=== PATIENT | female | born 1945 | race Caucasian/White ===

== ENCOUNTER 2017-08-06 16:05 | Inpatient (IN) | payer MEDICARE, OTHER, SELFPAY ==
[2017-08-06 16:13] VITALS: BP 156/88; PULSE 103; RESP 16; TEMP 37.6; O2SAT 99; BMI 39.6
--- NOTE | 2017-08-06 16:50 | DI.CT.S_ITS ---
PROCEDURE: CT SOFT TISSUE NECK W CON INDICATIONS: anterior neck swelling TECHNIQUE: After the administration of intravenous contrast, 3.0 mm axial sections acquired from the sella to the aortic arch. Additional oblique axial 3.0 mm sections acquired through the pharynx. 3 mm thick coronal and sagittal reformats were generated. For radiation dose reduction, the following was used: automated exposure control. COMPARISON: None. FINDINGS: Image quality: Excellent. Lymph nodes: No enlarged lymph nodes seen throughout the neck. Vessels: Visualized vasculature appears patent. Neck spaces: 1.6 x 1.4 x 1.0 cm fluid collection with enhancing periphery is noted in the musculature of the floor of the mouth which could represent abscess or necrotic neoplasm. The nasopharynx, and pharynx demonstrate no mucosal lesions. The vocal cords, false vocal cords, pyriform sinuses, epiglottis, vallecula, and tongue base all appear normal. Mild inflammatory changes noted in the anterior midline soft tissues of the neck. Glands: The parotid and submandibular glands appear normal. Thyroid gland is normal. Miscellaneous: Visualized brain and orbits appear normal. Lung apices appear clear. Superficial soft tissues appear normal. Bones: No suspicious bony lesions. Spine degenerative disease and facet arthropathy noted. Visualized sinuses and mastoids appear unremarkable. IMPRESSION: 1. 1.6 x 1.4 x 1.0 cm fluid collection with enhancing periphery in the genioglossus muscle of the floor of the mouth which could represent an abscess versus less likely necrotic malignancy. Please correlate with clinical data. 2. Mild inflammatory stranding noted in the anterior midline soft tissues of the neck concerning for cellulitis. Dictated by: Olga Strauss MD, PhD on 08/06/2017 at 18:57 Approved by: Olga Strauss MD, PhD on 08/06/2017 at 19:02
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
[2017-08-06 17:33] LABS: Add Manual Diff / Slide Review NO; Basophils Percent Auto 0.6 % (0-2); Eosinophils Percent Auto 0.5 % (2-4); Hemoglobin 13.9 g/dL (12.0-16.0); Lymphocytes Percent Auto 14.5 % (25-40); Mean Corpuscular Volume 88.3 fL (80-100); Monocytes Percent Auto 7.5 % (3-14); Neutrophils Absolute Auto 9300 /uL (3000-5900); Neutrophils Percent Auto 76.9 % (50-75); Platelet Count 361 X10^3/uL (150-400); Red Blood Cell Count 4.65 X10^6/uL (4.0-5.2); Red Cell Distribution Width 13.3 % (11.6-14.8); White Blood Cell Count 12.1 X10^3/uL (4.5-11.0)
[2017-08-06] MEDS: methylPREDNISolone 125 MG/2 ML VIAL IV (17:38)
[2017-08-06] MEDS: diphenhydrAMINE 50 MG/ML VIAL 25 MG IV ×2 (17:38→18:17)
[2017-08-06] MEDS: CLINDAMYCIN 600 MG/50 ML PIGGYBACK 50 MG IV (17:39)
[2017-08-06 17:46] LABS: Alanine Aminotransferase 45 IU/L (9-52); Albumin 4.5 g/dL (3.5-5.0); Albumin Globulin Ratio 1.5 (1.0-2.8); Alkaline Phosphatase 68 U/L (38-126); Aspartate Aminotransferase 28 IU/L (14-36); Bilirubin Total 0.8 mg/dL (0.2-1.3); Blood Urea Nitrogen 12 mg/dL (7-17); Calcium 9.7 mg/dL (8.4-10.2); Carbon Dioxide 24 mmol/L (22-32); Chloride 103 mmol/L (98-107); Estimated Glomerular Filt Rate > 60.0 mL/min (>60); Globulin 3.1 g/dL (1.7-4.1); Glucose 101 mg/dL (80-110); HEMOLYSIS < 15 (0-50); Potassium 3.8 mmol/L (3.4-5.1); Sodium 140 mmol/L (137-145); Total Protein 7.6 g/dL (6.3-8.2)
[2017-08-06 18:05] LABS: Procalcitonin < 0.05 ng/mL (<0.5)
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
[2017-08-06] MEDS: DEXAMETHASONE 20 MG in SODIUM CHLORIDE 0.9% 50 ML 208 ML IV (19:05)
[2017-08-06 19:45] VITALS: BP 123/79; PULSE 85; RESP 16; TEMP 36.1; O2SAT 98
[2017-08-06 20:01] VITALS: BMI 39.6
[2017-08-06] MEDS: SODIUM CHLORIDE 0.9% 1,000 ML 150 ML IV (20:18)
[2017-08-06] MEDS: ATORVASTATIN 20 MG TABLET 80 MG PO (21:23)
[2017-08-06] MEDS: SPIRONOLACTONE 25 MG TABLET PO (21:23)
[2017-08-06] MEDS: POTASSIUM CHLORIDE 20 MEQ TAB PO (21:23)
[2017-08-06] MEDS: GABAPENTIN 300 MG CAPSULE PO (21:23)
[2017-08-06] MEDS: ACETAMINOPHEN 325 MG TABLET 650 MG PO (21:25)
[2017-08-06 23:40] VITALS: BP 123/67; PULSE 81; RESP 17; TEMP 36.7; O2SAT 96
[2017-08-07] MEDS: CLINDAMYCIN 600 MG/50 ML PIGGYBACK 50 MG IV ×4 (00:01→18:08)
[2017-08-07] MEDS: SODIUM CHLORIDE 0.9% 1,000 ML 150 ML IV ×3 (03:43→21:13)
[2017-08-07 03:45] VITALS: BP 110/57; PULSE 70; RESP 16; TEMP 36.7; O2SAT 97
[2017-08-07] MEDS: LEVOTHYROXINE 50 MCG TABLET PO (05:21)
[2017-08-07] MEDS: DEXAMETHASONE 20 MG in SODIUM CHLORIDE 0.9% 50 ML 220 ML IV ×3 (06:43→21:14)
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
[2017-08-07] MEDS: POTASSIUM CHLORIDE 20 MEQ TAB PO ×2 (08:16→17:12)
[2017-08-07 08:34] VITALS: BP 115/75; PULSE 70; RESP 14; TEMP 36.4; O2SAT 96
[2017-08-07] MEDS: GABAPENTIN 300 MG CAPSULE PO ×3 (08:40→22:31)
[2017-08-07] MEDS: SPIRONOLACTONE 25 MG TABLET PO ×2 (08:42→17:11)
[2017-08-07] MEDS: CLOPIDOGREL 75 MG TABLET PO (11:44)
[2017-08-07] MEDS: ASPIRIN EC 81 MG TABLET PO (11:44)
[2017-08-07 14:30] VITALS: BP 129/66; PULSE 73; RESP 16; TEMP 36.5; O2SAT 98
--- NOTE | 2017-08-07 15:29 | CM.DANOTE ---
Patient is a 71 year old female admitted for swelling of throat and hard time swallowing. Patient has Submental abscess on imaging. Admit for ENT consultation, IV clindamycin and possible surgical drainage pending ENT evaluation. Met with patient at her bedside. She is alert and oriented. Role of certified financial planner explained. Patient lives on [facility] [address] during the desir and in [place] in the winter. She lives with her and is I. She does not identify any discharge needs or barriers. Plan: Continue to follow but likely d/c home with when medically stable.
[2017-08-07 15:50] VITALS: BP 125/65; PULSE 69; RESP 17; TEMP 36.2; O2SAT 98
[2017-08-07 19:55] VITALS: BP 116/67; PULSE 78; RESP 18; TEMP 36.2; O2SAT 96
[2017-08-07] MEDS: ATORVASTATIN 20 MG TABLET 80 MG PO (21:13)
--- NOTE | 2017-08-07 22:54 | PC.NURSE ---
SLOAN SHIFT NOTE: Patient doing well this shift. Denies pain, states that swelling and tightness in neck has gone down immensely. Patient very anxious and wanting to discharge as early as possible tomorrow am. Patient took off her wedding band and placed/pinned it inside her bra with safety pin as her fingers are swollen, this RN offered to put ring in safe per hospital policy and patient denied need. No other voiced complaints.
[2017-08-07 23:55] VITALS: BP 128/59; PULSE 73; RESP 17; TEMP 36.7; O2SAT 95
[2017-08-08 00:10] VITALS: O2SAT 95
[2017-08-08] MEDS: CLINDAMYCIN 600 MG/50 ML PIGGYBACK 50 MG IV ×2 (00:21→05:42)
[2017-08-08 04:01] VITALS: BP 127/70; PULSE 79; RESP 16; TEMP 36.7; O2SAT 94
[2017-08-08 04:20] VITALS: RESP 20
[2017-08-08] MEDS: SODIUM CHLORIDE 0.9% 1,000 ML 150 ML IV (05:11)
[2017-08-08] MEDS: LEVOTHYROXINE 50 MCG TABLET PO (05:43)
[2017-08-08] MEDS: ACETAMINOPHEN 325 MG TABLET 650 MG PO (05:45)
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
[2017-08-08] MEDS: SPIRONOLACTONE 25 MG TABLET PO (08:43)
[2017-08-08] MEDS: CLOPIDOGREL 75 MG TABLET PO (08:43)
[2017-08-08] MEDS: ASPIRIN EC 81 MG TABLET PO (08:43)
[2017-08-08] MEDS: MOXIFLOXACIN HCL 400 MG TABLET PO (08:43)
[2017-08-08] MEDS: GABAPENTIN 300 MG CAPSULE PO (08:43)
[2017-08-08] MEDS: POTASSIUM CHLORIDE 20 MEQ TAB PO (08:43)
[2017-08-08 08:44] VITALS: BP 115/67; PULSE 71; RESP 18; TEMP 36.6; O2SAT 98
--- NOTE | 2017-08-08 11:16 | PC.NURSE ---
Pt denies difficulty swallowing and reports improvement to anterior neck swelling; pt reports generalized weakness, gait steady, pt afebrile; instructions reviewed including RX medications, and f/u appointment; pt escorted via wheelchair with personal belongings in hand
== END 2017-08-08 10:45 | disposition home or self-care (01) | DRG 603 ==
LOC: ED 19:06 → AC 08-07 08:57
PROVIDERS: Emergency Medicine; Admitting Provider Internal Medicine; Emergency Provider Emergency Medicine; Visit Provider Internal Medicine
DX: L02.01 Cutaneous abscess of face (principal); E66.9 Obesity, unspecified; Z68.39 Body mass index [BMI] 39.0-39.9, adult; J45.909 Unspecified asthma, uncomplicated; E78.5 Hyperlipidemia, unspecified; I10 Essential (primary) hypertension; I25.10 Atherosclerotic heart disease of native coronary artery without angina pectoris; E03.9 Hypothyroidism, unspecified
CPT/HCPCS: 36415; 36591; 70491; 80053; 83605; 84145; 85025; 87040; 93005; 96365; 96375; 96376; 99283; 99285; J1100; J1200; J2930; Q9967

== ENCOUNTER 2017-08-18 17:29 | Observation (INO) | payer MEDICARE, OTHER, SELFPAY ==
[2017-08-18 17:30] VITALS: BP 144/76; PULSE 80; RESP 14; TEMP 37.2; O2SAT 100
--- NOTE | 2017-08-18 17:55 | PC.NURSE ---
Airway intact. Voice improved from previous visit per Dr. Zendejas.
[2017-08-18 18:04] LABS: Add Manual Diff / Slide Review NO; Basophils Percent Auto 0.1 % (0-2); Eosinophils Percent Auto 1.2 % (2-4); Hematocrit 42.1 % (36-46); Hemoglobin 14.1 g/dL (12.0-16.0); Lymphocytes Percent Auto 13.5 % (25-40); Mean Corpuscular HGB Conc 33.6 % (30-36); Mean Corpuscular Hemoglobin 29.7 PG (26-34); Mean Corpuscular Volume 88.5 fL (80-100); Monocytes Percent Auto 5.8 % (3-14); Neutrophils Absolute Auto 17400 /uL (3000-5900); Neutrophils Percent Auto 79.4 % (50-75); Platelet Count 396 X10^3/uL (150-400); Red Blood Cell Count 4.76 X10^6/uL (4.0-5.2); Red Cell Distribution Width 13.6 % (11.6-14.8); White Blood Cell Count 21.9 X10^3/uL (4.5-11.0)
[2017-08-18 18:28] LABS: Lactate (Lactic Acid) 1.2 mmol/L (0.7-2.1)
--- NOTE | 2017-08-18 18:39 | ED.NECK ---
HPI - Neck Pain/Injury General Chief Complaint: Neck Pain/Injury Stated Complaint: NEED IV POST PRECEDURE Time Seen by Provider: 08/18/17 17:50 Source: patient and family Mode of arrival: ambulatory Limitations: no limitations History of Present Illness HPI Narrative: 71-year-old female with history of anterior neck abscess presents to the emergency department at the request ear nose and throat for further evaluation. She had initially been seen here about 2 weeks ago for swelling in her throat, CT confirmed a small abscess and she was admitted for IV antibiotics. She was discharged on oral antibiotics which she stopped about a week ago. Over the past few days her symptoms have worsened and she followed up as an outpatient with Dr. Bonner whom did an incision and drainage in placed a [place] drain but sent her here due to increased swelling and some persistent bleeding, presumably due to her Plavix and aspirin. She denies any difficulty swallowing or breathing. She has had no fever or shaking chills. MD complaint: neck pain Onset (ago): week(s) Place: home Severity: moderate Quality: dull Duration: constant Relieving factors: none Exacerbating factors: none Associated symptoms: none Treatments prior to arrival: other (See HPI) Related Data Home Medications Medication Instructions Recorded Confirmed albuterol sulfate 1 puff INHALATION PRN PRN 08/06/17 08/06/17 aspirin 1 tab PO DAILY 08/06/17 08/06/17 atorvastatin 1 tab PO DAILY 08/06/17 08/06/17 bacitracin 1 applic TOPICAL DIRECTED 08/06/17 08/06/17 cetirizine 1 tab PO DAILY 08/06/17 08/06/17 clopidogrel 75 mg PO DAILY 08/06/17 08/06/17 diclofenac sodium 1 applic TOPICAL DIRECTED 08/06/17 08/06/17 dicyclomine 20 mg PO TID 08/06/17 08/06/17 epinephrine 1 ea IM PRN PRN 08/06/17 08/06/17 fluticasone 1 spray INTRANASAL DIRECTED 08/06/17 08/06/17 furosemide 20 mg PO DAILY PRN 08/06/17 08/06/17 gabapentin 1 cap PO TID 08/06/17 08/06/17 levothyroxine 1 tab PO DAILY 08/06/17 08/06/17 montelukast 1 tab PO DAILY 08/06/17 08/06/17 olopatadine 1 drp OPHTHALMIC (EYE) DIRECTED 08/06/17 08/06/17 potassium chloride 1 tab PO BID 08/06/17 08/06/17 spironolactone 25 mg PO BID 08/06/17 08/06/17 Previous Rx's Medication Instructions Recorded dexamethasone 4 mg PO Q12H #9 tab 08/08/17 moxifloxacin 400 mg PO DAILY #6 tab 08/08/17 Allergies Allergy/AdvReac Type Severity Reaction Status Date / Time Iodinated Contrast- Oral and Allergy Severe Anaphylaxis Verified 08/06/17 20:17 IV Dye strawberry Allergy Severe Hives Verified 08/07/17 17:19 Beta-Adrenergic Agents Allergy Verified 08/06/17 20:17 Penicillins Allergy Verified 08/06/17 20:17 Review of Systems Review of Systems All systems reviewed & are unremarkable except as noted in HPI and below Constitutional Denies chills, Denies fever(s), Denies lethargy and Denies weakness Eyes Denies change in vision, Denies eye discharge, Denies irritation and Denies loss of vision ENT Ears, Nose, Mouth, and Throat: Denies change in voice, Reports neck pain and Denies sore throat Cardiovascular Denies chest pain, Denies irregular heart rhythm, Denies lightheadedness, Denies palpitations, Denies dyspnea, Denies dyspnea on exertion and Denies orthopnea Respiratory Denies cough, Denies dyspnea, Denies dyspnea on exertion and Denies wheezing Gastrointestinal Gastrointestinal: Denies abdominal pain, Denies change in bowel habits, Denies diarrhea, Denies nausea and Denies vomiting Genitourinary Denies hematuria, Denies flank pain, Denies urinary incontinence and Denies urinary urgency Musculoskeletal Reports neck pain Integumentary/Breasts Denies pruritus, Denies erythema, Denies rash and Denies wounds Neurologic Denies confusion, Denies loss of vision and Denies weakness Psychiatric Denies anxiety, Denies confusion, Denies depression, Denies homicidal ideation and Denies suicidal ideation Endocrine Denies palpitations Hematologic/Lymphatic Denies easy bruising Allergic/Immunologic Denies wheezing [facility] Medical History Asthma (Acute) Cervical vertebral fusion (Acute) Coronary artery disease (Acute) Hyperlipidemia (Acute) Hypertension (Acute) Osteoarthritis (Acute) Surgical History History of shoulder surgery (Acute) Family History: Reviewed 08/18/17 by Quyen Ruiz MD Social History household members: spouse Smoking Status: Never smoker alcohol intake: current Exam Narrative Exam Narrative: 71-year-old female resting comfortably with dressing in place, saturated with sanguinous drainage Initial Vital Signs Initial Vital Signs: Vital Signs Temperature 98.9 F 08/18/17 17:30 Pulse Rate 80 08/18/17 17:30 Respiratory Rate 14 08/18/17 17:30 Blood Pressure 144/76 H 08/18/17 17:30 Pulse Oximetry 100 08/18/17 17:30 Const General: cooperative, well developed and in distress Nutritional Appearance: well nourished Orientation: alert, awake, oriented x3 and not confused HENMT Head: normocephalic and atraumatic Ears: external ears normal and TM's normal bilaterally Nose: external nose normal and No nasal discharge Face and sinus: sinuses nontender, face symmetric, no sinus tenderness and No dry mucous membranes Mouth: oral mucosae normal and moist mucous membranes Teeth and gingiva: dentition normal Throat: tonsils normal and uvula midline Eyes General: appearance normal, both eyes and all related structures Eyelids: eyelids normal Conjunctivae: conjunctivae normal Sclera: sclerae normal Pupils: PERRL EOM: EOM intact bilaterally Neck Neck: trachea midline, No lymphadenopathy, No midline deformity and No JVD Lymphatic: No lymphedema Other: Anterior dressing in place. [place] drain in place. There is induration but no remaining fluctuance Chest Chest: normal inspection of the chest Resp Effort & Inspection: normal respiratory effort, able to speak in complete sentences, no respiratory distress and no use of accessory muscles Auscultation: clear to auscultation bilaterally, no rales, no rhonchi and no wheezes Cardio Rate: regular rate Rhythm: regular rhythm Heart Sounds: no click, no gallops, no murmurs and no rubs Pulses: normal peripheral pulses GI Inspection: non-distended Palpation: soft, no hepatosplenomegaly, No guarding, No pulsatile mass and No tender Auscultation: normal bowel sounds Back/Spine/Pelvis Back: No CVA tenderness Cervical Spine: cervical ROM normal and No pain with cervical ROM Thoracic/Lumbar Spine: thoracic and lumbar spine normal to inspection Skin General: no rashes or lesions noted, No jaundice and No petechiae Neuro General: alert, oriented x3, gait normal and no focal motor deficits Speech: speech normal Extrem General: full ROM, no clubbing, cyanosis or edema, no pedal edema and no calf tenderness Psych Appearance: well kempt Mental Status: mental status grossly normal Attitude: cooperative Thought Content: normal and suicidality Judgment: judgment good Course Orders Ordered: ED Orders 08/18/17 17:45 Complete Blood Count AUTO DIFF Stat Lactate (Lactic Acid) Stat 08/18/17 17:51 Blood Culture Stat Albuterol (Ventolin Hfa) 1 puff INH PRN PRN PRN Reason: Shortness Of Breath Atorvastatin Calcium (Lipitor) 80 mg PO DAILY MARIA GUADALUPE Gabapentin (Neurontin) 300 mg PO TID MARIA GUADALUPE Levothyroxine Sodium (Synthroid) 50 mcg PO QACBREAK MARIA GUADALUPE Loratadine (Claritin) 10 mg PO DAILY MARIA GUADALUPE Ondansetron HCl (Zofran) 4 mg IV Q4HR PRN PRN Reason: Nausea And Vomiting Last Admin: 08/18/17 18:41 Dose: 4 mg Discontinued Medications Diphenhydramine HCl (Benadryl) 25 mg IV NOW ONE Stop: 08/18/17 18:27 Last Admin: 08/18/17 18:41 Dose: 25 mg Hydromorphone HCl (Dilaudid) 0.5 mg IV NOW ONE Stop: 08/18/17 18:27 Last Admin: 08/18/17 18:41 Dose: 0.5 mg Dexamethasone 20 mg/ Sodium (Chloride) 52 mls @ 208 mls/hr IV NOW ONE Stop: 08/18/17 18:27 Last Infusion: 08/18/17 19:50 Dose: 208 mls/hr Admin: 08/18/17 19:22 Dose: 208 mls/hr Sodium Chloride (Normal Saline 0.9%) 1,000 mls @ 1,000 mls/hr IV BOLUS ONE Stop: 08/18/17 19:25 Last Infusion: 08/18/17 19:31 Dose: 0 mls/hr Admin: 08/18/17 18:48 Dose: 1,000 mls/hr Clindamycin Phosphate (Cleocin) 900 mg in 50 mls @ 50 mls/hr IV NOW ONE Stop: 08/18/17 19:30 Last Infusion: 08/18/17 19:37 Dose: 0 mls/hr Admin: 08/18/17 18:43 Dose: 50 mls/hr Tranexamic Acid (Cyklokapron) 1,000 mg INJ INTRA-OP ONE Stop: 08/18/17 19:34 Last Admin: 08/18/17 19:34 Dose: 1,000 mg Reevaluation(s) Reevaluation #1: Dr. Bonner recommends IV antibiotics and admission to the hospitalist. He will follow up closely Consultations Consultation #1: Dr. Ruiz happy to accept on her service Vital Signs - 8 hr 08/18/17 18:52 08/18/17 20:55 08/18/17 22:37 Temperature 98.1 F Pulse Rate 83 72 Respiratory Rate 12 19 Blood Pressure 123/68 H Blood Pressure [Left Arm] 134/78 H Pulse Oximetry 96 99 96 08/19/17 00:00 08/19/17 00:40 08/19/17 01:25 Temperature 98.2 F Pulse Rate 72 Respiratory Rate 20 Blood Pressure 123/60 H Blood Pressure [Left Arm] Pulse Oximetry 96 95 93 MDM - Neck Pain/Injury Lab Data Result diagrams: 08/18/17 17:45 Lab Results 08/18/17 08/18/17 Range/Units 17:45 17:45 WBC 21.9 H (4.5-11.0) X10^3/uL RBC 4.76 (4.0-5.2) X10^6/uL Hgb 14.1 (12.0-16.0) g/dL Hct 42.1 (36-46) % MCV 88.5 (80-100) fL MCH 29.7 (26-34) PG MCHC 33.6 (30-36) % RDW 13.6 (11.6-14.8) % Plt Count 396 (150-400) X10^3/uL Neut % (Auto) 79.4 H (50-75) % Lymph % (Auto) 13.5 L (25-40) % [place] % (Auto) 5.8 (3-14) % Eos % (Auto) 1.2 L (2-4) % Baso % (Auto) 0.1 (0-2) % Neut # (Auto) 51367 H (3799-6457) /uL Lactate 1.2 (0.7-2.1) mmol/L Discharge Plan Departure Patient Disposition: Admitted As Inpatient Clinical Impression: Abscess of neck Discharge Date/Time: 08/18/17 19:51 Interventions: ED Discharge Assessment Last Done: 08/18/17 19:16 Admit Date/Time: 08/18/17 19:42 Admit Provider: Quyen Ruiz
[2017-08-18] MEDS: HYDROMORPHONE 1 MG INJ 0.5 MG IV (18:41)
[2017-08-18] MEDS: diphenhydrAMINE 50 MG/ML VIAL 25 MG IV (18:41)
[2017-08-18] MEDS: ONDANSETRON 4 MG/2 ML INJ IV (18:41)
[2017-08-18] MEDS: CLINDAMYCIN 900 MG/50 ML PIGGYBACK 50 MG IV (18:43)
[2017-08-18] MEDS: SODIUM CHLORIDE 0.9% 1,000 ML 1000 ML IV (18:48)
[2017-08-18 18:52] VITALS: BP 134/78; PULSE 83; RESP 12; O2SAT 96
[2017-08-18] MEDS: DEXAMETHASONE 20 MG in SODIUM CHLORIDE 0.9% 50 ML 208 ML IV (19:22)
[2017-08-18] MEDS: TRANEXAMIC ACID 1,000 MG VIAL 1000 MG INJ (19:34)
[2017-08-18 20:55] VITALS: BP 123/68; PULSE 72; RESP 19; TEMP 36.7; O2SAT 99
--- NOTE | 2017-08-18 21:13 | P.HP_ITS ---
History of Present Illness Date Patient Seen: 08/18/17 Time Patient Seen: 21:00 Chief complaint: NEED IV POST PRECEDURE Narrative: 71-year-old female who was recently admitted to [facility] on August 06, 2017 for submental abscess. She was treated with IV clindamycin and had improvement of the abscess. She was subsequently discharged home on oral avelox. She had improvement of her symptoms when she went for follow-up appointment with Dr. Bonner about a week ago. She has been off antibiotics for about 6 days. She started noticing worsening of swelling about 2 days ago. She also had some chills. When she returned today for follow-up visit, she was noted to have recurrent abscess in the same area. Surgical I&D was performed by Dr. Bonner at the ENT clinic. A drain was placed. [place] [id number]. She was admitted to the medicine floor for IV antibiotics and observation. After admission she was noted to have profuse bleeding from the drain placement site. Dr. Bonner is currently evaluating the patient for possible cauterization. Patient History Medical History Asthma (Acute) Cervical vertebral fusion (Acute) Coronary artery disease (Acute) Hyperlipidemia (Acute) Hypertension (Acute) Osteoarthritis (Acute) Surgical History History of shoulder surgery (Acute) Family & Social History Family History: Reviewed 08/18/17 by Quyen Ruiz MD Social History: household members spouse Safety & Behavioral: Feels Safe in Current Yes Environment Been Physically Hurt or No Threatened By a Person Tobacco & Substance use: Smoking Status Never smoker alcohol intake current alcohol intake frequency 0-2 drinks per day Substance Use Type does not use Meds Home Medications Medication Instructions Recorded Confirmed Type albuterol sulfate 1 puff INHALATION PRN PRN 08/06/17 08/06/17 History aspirin 1 tab PO DAILY 08/06/17 08/06/17 History atorvastatin 1 tab PO DAILY 08/06/17 08/06/17 History bacitracin 1 applic TOPICAL DIRECTED 08/06/17 08/06/17 History cetirizine 1 tab PO DAILY 08/06/17 08/06/17 History clopidogrel 75 mg PO DAILY 08/06/17 08/06/17 History diclofenac sodium 1 applic TOPICAL DIRECTED 08/06/17 08/06/17 History dicyclomine 20 mg PO TID 08/06/17 08/06/17 History epinephrine 1 ea IM PRN PRN 08/06/17 08/06/17 History fluticasone 1 spray INTRANASAL DIRECTED 08/06/17 08/06/17 History furosemide 20 mg PO DAILY PRN 08/06/17 08/06/17 History gabapentin 1 cap PO TID 08/06/17 08/06/17 History levothyroxine 1 tab PO DAILY 08/06/17 08/06/17 History montelukast 1 tab PO DAILY 08/06/17 08/06/17 History olopatadine 1 drp OPHTHALMIC (EYE) DIRECTED 08/06/17 08/06/17 History potassium chloride 1 tab PO BID 08/06/17 08/06/17 History spironolactone 25 mg PO BID 08/06/17 08/06/17 History dexamethasone 4 mg PO Q12H #9 tab 08/08/17 Rx moxifloxacin 400 mg PO DAILY #6 tab 08/08/17 Rx Allergies Allergy/AdvReac Type Severity Reaction Status Date / Time Iodinated Contrast- Oral and Allergy Severe Anaphylaxis Verified 08/06/17 20:17 IV Dye strawberry Allergy Severe Hives Verified 08/07/17 17:19 Beta-Adrenergic Agents Allergy Verified 08/06/17 20:17 Penicillins Allergy Verified 08/06/17 20:17 Review of Systems Constitutional Comments: Denies fever chills or sweats ENT Ears, Nose, Mouth, and Throat: Yes as per HPI Cardiovascular Comments: Denies chest pain or shortness of breath Respiratory Comments: No cough Gastrointestinal Comments: Denies abdominal pain Genitourinary Comments: No dysuria Exam Vital Signs (past 8 hours): - 08/18/17 17:30 08/18/17 18:52 08/18/17 20:55 Temperature 98.9 F 98.1 F Pulse Rate 80 83 72 Respiratory Rate 14 12 19 Blood Pressure 144/76 H 123/68 H Blood Pressure [Left Arm] 134/78 H Pulse Oximetry 100 96 99 Oxygen Delivery Method Room Air Narrative Exam Narrative: GENERAL: Well-appearing, well-nourished and in no acute distress. HEENT: Head normocephalic, atraumatic. Eyes pupils equal round; submental wound has drain in place, no current bleeding. There was mild soft tissue swelling around the drain site. NECK: Supple, no JVD, CHEST: Breath sounds equal bilaterally, no wheezes rales or rhonchi. CARDIAC: Regular rate and rhythm without murmurs, rubs or gallops. ABDOMEN: Soft, nontender. Normoactive bowel sounds all 4 quadrants. No guarding or rebound. EXTREMITIES: Normal range of motion, no clubbing or edema. NEUROLOGICAL: Alert and oriented; Normal muscle strength. SKIN: Warm, dry, no petechiae, no rashes or lesions. Objective Labs Result Diagrams: 08/18/17 17:45 Labs: Laboratory Results - last 24 hr 08/18/17 08/18/17 17:45 17:45 WBC 21.9 H RBC 4.76 Hgb 14.1 Hct 42.1 MCV 88.5 MCH 29.7 MCHC 33.6 RDW 13.6 Plt Count 396 Neut % (Auto) 79.4 H Lymph % (Auto) 13.5 L [place] % (Auto) 5.8 Eos % (Auto) 1.2 L Baso % (Auto) 0.1 Neut # (Auto) 12841 H Lactate 1.2 Assessment & Plan Plan: Assessment/Plan Narrative: 1. Recurrent submental abscess, status post surgical I and D and drain placement. She was restarted on IV clindamycin. She was found to have significant bleeding after the drain placement. She has been on Plavix and baby aspirin. Her last dose of Plavix was yesterday morning. Her bleeding stopped after local pressure for 25 min. 2. Coronary artery disease: Clinically stable. Hold aspirin and Plavix due to ongoing bleeding after the surgery. Continue other routine medications 3. Hypertension: Continue routine outpatient medications 4. Hyperlipidemia: Continue atorvastatin 5. Hypothyroidism: Continue levothyroxine per outpatient dosing. 6. DVT prophylaxis: Contraindicated due to active bleeding. 7. Disposition: Possible discharge home tomorrow if she is stable.
[2017-08-18 21:24] VITALS: BMI 39.6
[2017-08-18 22:37] VITALS: O2SAT 96
--- NOTE | 2017-08-18 22:45 | PC.NURSE ---
admission pt to AC from ER around 1939. VSS though BP had dropped from when taken in ER. Pt alert and oriented and able to self transfer to bed. Pt has gauze dressing around surgical site at anterior neck with scant bleeding upon arrival that quickly saturated dressing. Dressing reinforced with 4x4s and ice pack for pressure. Page to at 1999 to notify MD of situation as well report that dressing was saturated and changed x4 in ER per report from WARDRO[employer] ASSISTANT Janiya. Per this RN paged ENT as performed placement of lan drain today. Spoke with , consultant rn for and took down dressing to pack around drain. dressing removed and pt has significant dripping faucet like drainage from lan and posterior. than called this RN and instructed this movie writer to apply 4x4 with pressure and occlude drain to get bleeding to stop and stated he would come see pt. Pressure applied for 25min from 2024 to 2049 when arrived. Pressure dressing removed and bleeding has stopped. Per , pressure dressing replaced with verbal instruction to maintain pressure dressing and secure if needed. MD states lan drainage is secondary to stopping bleeding currently. Pt aware of the same. Pain only with palpation. Pt states tolerable after dilaudid in ER. Pt using call light appropriately. given dinner and aware of plan of care.
[2017-08-19] VITALS (7 sets, daily range): BP systolic 111–132; BP diastolic 60–69; PULSE 60–73; RESP 16–20; TEMP 36.3–36.8; O2SAT 93–97
[2017-08-19] MEDS: LEVOTHYROXINE 50 MCG TABLET PO (09:42)
[2017-08-19] MEDS: GABAPENTIN 300 MG CAPSULE PO (09:43)
[2017-08-19] MEDS: LORATADINE 10 MG TABLET PO (09:43)
--- NOTE | 2017-08-19 12:29 | PM.DS.1 ---
History of Present Illness Date Patient Seen: 08/19/17 Time Patient Seen: 12:00 Chief complaint: NEED IV POST PRECEDURE Narrative: 71-year-old female who was recently admitted to [facility] on August 06, 2017 for submental abscess. She was treated with IV clindamycin and had improvement of the abscess. She was subsequently discharged home on oral avelox. She had improvement of her symptoms when she went for follow-up appointment with Dr. Bonner about a week ago. She has been off antibiotics for about 6 days. She started noticing worsening of swelling about 2 days ago. She also had some chills. When she returned today for follow-up visit, she was noted to have recurrent abscess in the same area. Surgical I&D was performed by Dr. Bonner at the ENT clinic. A drain was placed. Patient was [place] [id number]. She was admitted to the medicine floor for IV antibiotics and observation. After admission she was noted to have profuse bleeding from the drain placement site. Dr. Bonner is currently evaluating the patient for possible cauterization. Discharge Providers Date of admission: 08/18/17 19:42 Discharge provider: Hiren Bowser MD Summary Discharge Diagnosis: 1. Submental abscess, status post incision and drainage complicated by bleeding. 2. Coronary artery disease. 3. Hypertension. 4. Hyperlipidemia. 5. Hypothyroidism. Hospital Course: The patient underwent operative management of her post procedural bleeding, was observed overnight off aspirin and clopidogrel. Bleeding stopped and she was continued on her usual antibiotics at the time of discharge with close outpatient ENT follow-up planned. Status at Discharge Functional status at discharge: independent ambulation Overall status at discharge: patient is back to baseline Time Spent with Patient Greater than 30 minutes Exam Vital Signs (past 8 hours): - 08/19/17 05:11 08/19/17 09:00 Temperature 97.4 F L 97.4 F L Pulse Rate 60 61 Respiratory Rate 16 18 Blood Pressure 111/60 120/67 Pulse Oximetry 94 96 Oxygen Delivery Method Room Air Oxygen Flow Rate 0 Narrative Exam Narrative: GENERAL: Well-appearing, well-nourished and in no acute distress. HEENT: Head normocephalic, atraumatic. Eyes pupils equal round; submental wound has drain in place, no current bleeding. There was mild soft tissue swelling around the drain site. NECK: Supple otherwise. CHEST: Clear to auscultation. CARDIAC: Regular rate and rhythm without murmurs. ABDOMEN: Soft, nontender. EXTREMITIES: No edema. NEUROLOGICAL: Alert and oriented; Normal muscle strength. SKIN: Warm, dry, no petechiae, no rashes or lesions. Objective Labs Result Diagrams: 08/18/17 17:45 Labs: Laboratory Results - last 24 hr 08/18/17 08/18/17 17:45 17:45 WBC 21.9 H RBC 4.76 Hgb 14.1 Hct 42.1 MCV 88.5 MCH 29.7 MCHC 33.6 RDW 13.6 Plt Count 396 Neut % (Auto) 79.4 H Lymph % (Auto) 13.5 L [place] % (Auto) 5.8 Eos % (Auto) 1.2 L Baso % (Auto) 0.1 Neut # (Auto) 98726 H Lactate 1.2 Discharge Plan Discharge Plan Patient Disposition: Home, Self-Care Provider Discharge Instructions Diet: Regular Wound Care Report to your healthcare provider any signs of infection, such as:: chills, fever, night sweats, increased pain and unusual drainage Discharge Data Attending Provider: Quyen Ruiz Admit Date/Time: 08/18/17 19:42 Quality VTE Deep Vein Thrombosis/Pulmonary Embolism Present on Admission: No
--- NOTE | 2017-08-19 14:54 | PC.NURSE ---
Dressing around anterior neck, lan drain changed this am as old dressing had 80% dried/damp drainage. Edema and erythemia to jaw line and throat noted. No respiratory complaints. O2 sats upper 90's on RA. Pt is able to swallow safely and w/o discomfort. Pt instructed in wound care and s/sx of infection.
--- NOTE | 2017-08-19 15:05 | CM.DANOTE ---
DCP Assessment/Chart Review Patient is a 71 year old READMIT on 08/18/17 for IV Post Procedure. Pt has [facility] and for insurance. EMR was reviewed. Per MD, pt recently discharged on August 06, 2017 for similar and is medically stable for d/c home today on oral meds. SW attempted to meet bedside with pt and pt in the bathroom and requesting SW to come back. SW attempted again and pt had already discharged home and was out of the hospital. Plan: Patient discharged home via friend POV. No SW needs at this time. SHARDA Garcia
== END 2017-08-19 14:30 | disposition home or self-care (01) ==
LOC: ED 19:33 → AC 19:55
PROVIDERS: Emergency Medicine; Admitting Provider Internal Medicine; Emergency Provider Emergency Medicine; Visit Provider Internal Medicine
DX: L02.01 Cutaneous abscess of face (principal); I25.10 Atherosclerotic heart disease of native coronary artery without angina pectoris; E78.5 Hyperlipidemia, unspecified; E03.9 Hypothyroidism, unspecified; I10 Essential (primary) hypertension
CPT/HCPCS: 36415; 36591; 83605; 85025; 87040; 96365; 96366; 96368; 96372; 96375; 99284; 99285; G0378; J1100; J1170; J1200; J2405

== ENCOUNTER → 2017-08-19 13:30 | Outpatient (REF) | payer MEDICARE, OTHER, SELFPAY ==
[2017-08-18 21:24] VITALS: BMI 39.6
== END ==
LOC: LAB 13:30
PROVIDERS: Visit Provider Otolaryngology
DX: M54.2 Cervicalgia (principal); J39.1 Other abscess of pharynx; L02.11 Cutaneous abscess of neck; L03.221 Cellulitis of neck
CPT/HCPCS: 87070; 87077; 87186; 87205